=== PATIENT | female | born 1990 | race Caucasian/White ===

== ENCOUNTER → 2016-08-23 | Outpatient (CLI) | payer MEDICAID | LOC: FIMAGING 09:03 | PROVIDERS: ATTEND Obstetrics & Gynecology | DX: Z34.92 Encounter for supervision of normal pregnancy, unspecified, second trimester (principal); Z3A.21 21 weeks gestation of pregnancy ==

== ENCOUNTER → 2016-10-05 | Outpatient (CLI) | payer MEDICAID | LOC: FIMAGING 07:28 | PROVIDERS: ATTEND Obstetrics & Gynecology | DX: Z34.82 Encounter for supervision of other normal pregnancy, second trimester (principal); Z82.49 Family history of ischemic heart disease and other diseases of the circulatory system; Z3A.26 26 weeks gestation of pregnancy ==